=== PATIENT | female | born 1980 | race Caucasian/White ===

== ENCOUNTER 2016-11-30 19:39 | Outpatient (CLI) | payer OTHER ==
[2016-11-30 20:29] LABS: APPEARANCE,URINE SLIGHTLY-CLOUDY; BILIRUBIN,URINE NEGATIVE (NEGATIVE); GLUCOSE, URINE NEGATIVE (NEGATIVE); KETONES,URINE NEGATIVE (NEGATIVE); LEUKOCYTE ESTERASE,URINE NEGATIVE (NEGATIVE); NITRITE,URINE NEGATIVE (NEGATIVE); PROTEIN,URINE NEGATIVE (NEGATIVE); URINE SPECIFIC GRAVITY 1.009; UROBILINOGEN,URINE NEGATIVE mg/dL (<2.0)
[2016-11-30 20:45] LABS: URINE BARBITURATES SCREEN NEGATIVE; URINE METHADONE SCREEN NEGATIVE; URINE OPIATES LOW NEGATIVE; URINE PHENCYCLIDINE SCREEN NEGATIVE
--- NOTE | 2016-11-30 21:46 | RADIOLOGY REPORT (SQ) ---
EXAM DESCRIPTION: U/S OB LIMITED COMPLETED DATE/TIME: 11/30/2016 9:35 pm REASON FOR STUDY: cramping/hx of PTL/spotting--assess cervical lengt COMPARISON: None. TECHNIQUE: Limited transabdominal grayscale ultrasound for evaluation of specific requested obstetri winnie parameters. LIMITATIONS: None. FINDINGS: CERVICAL LENGTH: 5.3 cm. Closed. JAYSON: 11.1 cm. FHR: 131 beats per minute. PRESENTATION: Cephalic. OTHER: The placenta is posterior in location. IMPRESSION: LIMITED OBSTETRICAL ULTRASOUND WITH MEASURED PARAMETERS DELINEATED ABOVE. Trimester of : Third trimester - 28 weeks to delivery. TECHNICAL DOCUMENTATION: JOB ID: [id number] [employer]- All Rights Reserved
--- NOTE | 2016-11-30 22:02 | Non Stress Test Report ---
Non Stress Test Datetime Report Generated by CPN: 11/30/2016 22:02 DEMOGRAPHIC EGA NST: 32.4 INDICATION Indication for Study: Ordered by Provider MONITORING Monitor Explained: Monitor Explained; Test Explained; Patient Verbalized Understanding Time on Monitor: 11/30/2016 19:57 Time off Monitor: 11/30/2016 21:04 NST Duration: 67 NST INTERVENTIONS NST Interventions: None BABY A: [id number] BABY A Movement : Present Contraction Frequency : none FHR Baseline : 135 Accelerations : 15X15 Decelerations : None Variability : Moderate 6-25bpm NST Review: Meets Criteria for Reactive NST NST Review and Verified By : LACIE Sanders NST Results: Reactive NST REPORT Report Trigger: Send Report
== END 2016-11-30 21:57 | disposition home or self-care (01) ==
LOC: LC 19:39
PROVIDERS: ATTEND Obstetrics & Gynecology
PROC: 4A1HXCZ Monitoring of Products of Conception, Cardiac Rate, External Approach (ICD-10-PCS; principal; 2016-11-30)
DX: O60.03 Preterm labor without delivery, third trimester (principal); Z3A.32 32 weeks gestation of pregnancy
CPT/HCPCS: 76815; 80307; 81001

== ENCOUNTER 2016-12-26 13:30 | Outpatient (CLI) | payer OTHER ==
[2016-12-26 14:06] LABS: APPEARANCE,URINE SLIGHTLY-CLOUDY; BILIRUBIN,URINE NEGATIVE (NEGATIVE); GLUCOSE, URINE >=500 mg/dL (NEGATIVE); KETONES,URINE NEGATIVE (NEGATIVE); LEUKOCYTE ESTERASE,URINE MODERATE (NEGATIVE); NITRITE,URINE NEGATIVE (NEGATIVE); PROTEIN,URINE NEGATIVE (NEGATIVE); URINE SPECIFIC GRAVITY 1.005; UROBILINOGEN,URINE NEGATIVE mg/dL (<2.0)
[2016-12-26 14:37] LABS: URINE BARBITURATES SCREEN NEGATIVE; URINE METHADONE SCREEN NEGATIVE; URINE OPIATES LOW NEGATIVE; URINE PHENCYCLIDINE SCREEN NEGATIVE
--- NOTE | 2016-12-26 15:17 | Non Stress Test Report ---
Non Stress Test Datetime Report Generated by CPN: 12/26/2016 15:17 DEMOGRAPHIC EGA NST: 36.2 INDICATION Indication for Study: Other Indication for Study (NST) Other: Labor check MONITORING Monitor Explained: Monitor Explained; Test Explained; Patient Verbalized Understanding Time on Monitor: 12/26/2016 13:53 Time off Monitor: 12/26/2016 15:10 NST Duration: 77 NST INTERVENTIONS NST Interventions: None Physician Notified NST: Dr. Chen BABY A: [id number] BABY A Movement : Present Contraction Frequency : 0 FHR Baseline : 140 Accelerations : 15X15 Decelerations : None Variability : Moderate 6-25bpm NST Review: Meets Criteria for Reactive NST NST Review and Verified By : HJazmine Ryanne, RN NST Results: Reactive NST REPORT Report Trigger: Send Report
== END 2016-12-26 15:21 | disposition home or self-care (01) ==
LOC: LC 13:30
PROVIDERS: ATTEND Obstetrics & Gynecology
PROC: 4A1HXCZ Monitoring of Products of Conception, Cardiac Rate, External Approach (ICD-10-PCS; principal; 2016-12-26)
DX: O09.523 Supervision of elderly multigravida, third trimester (principal); Z3A.36 36 weeks gestation of pregnancy
CPT/HCPCS: 59025; 80307; 81001

== ENCOUNTER 2016-12-29 16:48 | Outpatient (CLI) | payer OTHER ==
--- NOTE | 2016-12-29 17:44 | Non Stress Test Report ---
Non Stress Test Datetime Report Generated by CPN: 12/29/2016 17:44 DEMOGRAPHIC EGA NST: 36.5 INDICATION Indication for Study: Other Indication for Study (NST) Other: AMA VITAL SIGNS Temperature - NST: 98.2 Pulse - NST: 78 RESP - NST: 16 NBPSYS NST: 118 NBPDIA NST: 84 MONITORING Monitor Explained: Monitor Explained; Test Explained; Patient Verbalized Understanding Time on Monitor: 12/29/2016 17:01 Time off Monitor: 12/29/2016 17:36 NST Duration: 35 NST INTERVENTIONS NST Interventions: PO Hydration; Reposition Patient; Oxytocin Challenge Test Physician Notified NST: Dr. Barrientos, Strip reviewed by provider BABY A: [id number] BABY A Movement : Present Contraction Frequency : none FHR Baseline : 130 Accelerations : 15X15 Decelerations : None Variability : Moderate 6-25bpm NST Review: Meets Criteria for Reactive NST NST Review and Verified By : CHYNA MANLEY, RN NST Results: Reactive NST REPORT Report Trigger: Send Report
== END 2016-12-29 17:38 | disposition home or self-care (01) ==
LOC: LC 16:48
PROVIDERS: ATTEND Specialist
DX: O09.523 Supervision of elderly multigravida, third trimester (principal); Z3A.36 36 weeks gestation of pregnancy
CPT/HCPCS: 59025

== ENCOUNTER 2017-01-04 04:21 | Inpatient (IN) | payer OTHER ==
[2017-01-04 05:04] LABS: APPEARANCE,URINE SLIGHTLY-CLOUDY; BILIRUBIN,URINE NEGATIVE (NEGATIVE); GLUCOSE, URINE NEGATIVE (NEGATIVE); KETONES,URINE NEGATIVE (NEGATIVE); LEUKOCYTE ESTERASE,URINE MODERATE (NEGATIVE); NITRITE,URINE NEGATIVE (NEGATIVE); PROTEIN,URINE NEGATIVE (NEGATIVE); URINE SPECIFIC GRAVITY 1.009; UROBILINOGEN,URINE NEGATIVE mg/dL (<2.0)
[2017-01-04] MEDS ORDERED: RINGERS SOLUTION,LACTATED 1,000 ML IV ONE (05:10)
[2017-01-04] MEDS ORDERED: RINGERS SOLUTION,LACTATED 1,000 ML IV PRN (05:10)
[2017-01-04 05:18] LABS: URINE BARBITURATES SCREEN NEGATIVE; URINE METHADONE SCREEN NEGATIVE; URINE OPIATES LOW NEGATIVE; URINE PHENCYCLIDINE SCREEN NEGATIVE
[2017-01-04] MEDS ORDERED: MISOPROSTOL 0.2 MG TABLET ONE (05:41)
[2017-01-04] MEDS ORDERED: LIDOCAINE 1% INJ-PF (10 MG/ML) 30 ML SDV ONE (05:41)
[2017-01-04] MEDS ORDERED: OXYTOCIN/NORMAL SALINE 20 UNIT/1,000 ML RTUINJ ONE (05:42)
[2017-01-04 05:43] LABS: ABSOLUTE LYMPHOCYTES (AUTO) 1.9 10^3/uL (0.5-4.7); ABSOLUTE MONOCYTES (AUTO) 0.7 10^3/uL (0.1-1.4); ABSOLUTE NEUT (AUTO) 5.4 10^3/uL (1.7-8.2); BASOPHILS % (AUTO) 0.3 % (0-2); EOSINOPHILS % (AUTO) 0.6 % (0-6); HEMATOCRIT 32.7 % (36.0-47.0); HEMOGLOBIN 11.6 g/dL (12.0-15.5); HGB HCT DIFFERENCE 2.1; LYMPHOCYTES % (AUTO) 23.9 % (13-45); MEAN CORPUSCULAR HEMOGLOBIN 32.2 pg (27.0-33.4); MEAN CORPUSCULAR HGB CONC 35.5 g/dL (32.0-36.0); MEAN CORPUSCULAR VOLUME 91 fl (80-97); MONOCYTES % (AUTO) 8.5 % (3-13); RED BLOOD COUNT 3.61 10^6/uL (3.72-5.28); RED CELL DISTRIBUTION WIDTH 13.8 % (11.5-14.0); SEGMENTED NEUTROPHILS % (AUTO) 66.7 % (42-78)
--- NOTE | 2017-01-04 06:36 | L&D Progress Notes ---
PROGRESS NOTES Datetime Report Generated by CPN: 01/04/2017 06:36 PROGRESS NOTE Procedures: Artificial ROM Plan: Continue Present Management Comment: Pt c/o more pressure. Offered arom and pt accepted. SVE unchanged. Fluid clear. MEMBRANES Membranes: Ruptured Amniotic Fluid Color: Clear FETUS A FHR Category: Category I SIGNATURE SIGNATURE: [id number] SIGNATURE: [id number] SIGNATURE: [id number] SIGNATURE: [id number] Signature: with User ID: [email or web address]
[2017-01-04] MEDS ORDERED: NALBUPHINE HCL INJ 10 MG/1 ML AMPULE ONE (07:24)
[2017-01-04] MEDS ORDERED: NALBUPHINE HCL INJ 10 MG/1 ML AMPULE INJ ONE (07:36)
[2017-01-04] MEDS ORDERED: EPHEDRINE SULFATE INJ 50 MG/1 ML AMPULE ONE (08:28)
[2017-01-04] MEDS ORDERED: FENTANYL CITRATE INJ/PF 100 MCG/2 ML AMPUL ONE (08:28)
[2017-01-04] MEDS ORDERED: PHENYLEPHRINE HCL INJ/PF 10 MG/1 ML SDV ONE (08:28)
--- NOTE | 2017-01-04 08:28 | L&D Progress Notes ---
PROGRESS NOTES Datetime Report Generated by CPN: 01/04/2017 08:28 PROGRESS NOTE Impression: Normal Progression of Labor Plan: Continue Present Management Vital Signs : Reviewed; Within Normal Limits Comment: breathing with uc's, VE 7-8cm/90/vtx/0, requesting epidural, hsb at helping pt breath, talking after uc's, uc's q 2-3 min x 60, Cat 1 with early decelerations, sitting on side of bed for epidural FETUS C SIGNATURE: [id number] Assignment: Liam Chen DO Signature: with User ID: [email or web address] : with User ID: [email or web address]
[2017-01-04] MEDS ORDERED: FENTANYL/BUPIVACAINE/NS/PF 200 MCG/100 ML RTUINJ EPI ONE (08:29)
[2017-01-04] MEDS ORDERED: BUPIVACAINE HCL 0.25 % INJ/PF (2.5 MG/1 ML) 30 ML VIAL ONE (08:29)
[2017-01-04] MEDS ORDERED: GLYCERIN/WITCH HAZEL LEAF 1 EACH MED..PAD TP PRN (10:34)
[2017-01-04] MEDS ORDERED: MEASLES,MUMPS&RUBELLA VACC/PF 0.5 ML VIAL SUBCUT PRN (10:34)
[2017-01-04] MEDS ORDERED: PROMETHAZINE HCL 25 MG SUPP.RECT PR PRN (10:34)
[2017-01-04] MEDS ORDERED: PROMETHAZINE HCL INJ 25 MG/1 ML VIAL IV PRN (10:34)
[2017-01-04] MEDS ORDERED: MISOPROSTOL 0.2 MG TABLET PR PRN (10:34)
[2017-01-04] MEDS ORDERED: MAGNESIUM HYDROXIDE SUSP 30 ML UDCUP PO PRN (10:34)
[2017-01-04] MEDS ORDERED: NA PHOS,M-B/NA PHOS,DI-BA (ADULT) 133 ML ENEMA PR PRN (10:34)
[2017-01-04] MEDS ORDERED: DIBUCAINE 1% OINTMENT 28 GM TP PRN (10:34)
[2017-01-04] MEDS ORDERED: BENZOCAINE/MENTHOL AEROSOL SPRAY 56 ML TOP PRN (10:34)
[2017-01-04] MEDS ORDERED: OXYTOCIN/NORMAL SALINE 20 UNIT/1,000 ML RTUINJ IV PRN (10:34)
[2017-01-04] MEDS ORDERED: PSEUDOEPHEDRINE HCL 30 MG TABLET PO PRN (10:34)
[2017-01-04] MEDS ORDERED: PROMETHAZINE HCL 25 MG TABLET PO PRN (10:34)
[2017-01-04] MEDS ORDERED: DIPH/PERTUSS(ACELL)/TETANUS VAC/PF 0.5 ML SYR (>=10YO) IM PRN (10:34)
[2017-01-04] MEDS ORDERED: DIPHENHYDRAMINE HCL 25 MG CAPSULE PO PRN (10:34)
[2017-01-04] MEDS ORDERED: ACETAMINOPHEN 650 MG SUPP.RECT PR PRN (10:34)
--- NOTE | 2017-01-04 11:27 | Delivery Summary ---
Del Sum A-C Datetime Report Generated by CPN: 01/04/2017 11:27 DELIVERY PERSONNEL DELIVERY PERSONNEL: [id number] Delivery Doctor:: Radhika York CNM Nurse Sports Trainer Certified:: Radhika York CNM Labor and Delivery Nurse:: Siria Rojas RNmodel maker plastic Nurse:: LACIE Winslow Creative Services Director/[address] MAN: Sheila Bailey CNA II MATERNAL INFORMATION Delivery Anesthesia: Epidural Medications After Delivery: Pitocin Bolus-Please Comment; Pitocin Drip 20 Units/1000ml NSS; Cytotec 600mcg Per Rectum/Vagina Estimated Blood Loss (ml): 300 Maternal Complications: None Provider Comments: Pt progressed quickly and had strong urge to push, pushed x 3, viable female from OA to JEOVANNY over ML lac,, baby placed on mothers abdomen, cord clamped after 2 minutes, spont delivery of grossly nl intact placenta, placed in cooler on ice for mother to take home for encapsulation. ML lac repaired with 2-0 chromic without difficulty using epidural for anesthesia, Pitocin started, massage, Cytotec 600 mcg via rectum. Baby and mom remain in recovery in stable condition. FAther at , plans to breastfeed (Annotations: Data stored by CPN on behalf of user) LABOR SUMMARY EDC: 01/21/2017 00:00 No. Babies in Womb: 1 Attempted: No Labor Anesthesia: Epidural LABOR INFORMATION Reason for Induction: Not Applicable Onset of Labor: 01/04/2017 04:51 Complete Dilatation: 01/04/2017 10:06 Oxytocin: N/A Group B Beta Strep: negative Antibiotics # of Doses: 0 Steroids Given: None Reason Steroids Not Administered: Not Applicable MEMBRANES Membranes Rupture Method: Artificial Rupture of Membranes: 01/04/2017 06:29 Length of Rupture (hr): 3.68 Amniotic Fluid Color: Bloody Amniotic Fluid Amount: Small STAGES OF LABOR Stage 1 hr: 5 Stage 1 min: 15 Stage 2 hr: 0 Stage 2 min: 4 Stage 3 hr: 0 Stage 3 min: 4 Total Time in Labor hr: 5 Total Time in Labor min: 23 VAGINAL DELIVERY Episiotomy: None Laceration Extension: N/A Laceration Type: Perineal Laceration Repair Note: ML lac repaired with 2-0 chromic without difficulty Sponge Count Correct: Yes Sharps Count Correct: Yes CSECTION DELIVERY Primary Indication: N/A CSection Incision: N/A BABY A INFORMATION Infant Delivery Date/Time: 01/04/2017 10:10 Method of Delivery: Vaginal Born in Route : No : N/A Forceps: N/A Vacuum Extraction: N/A Shoulder Dystocia : No PRESENTATION/POSITION BABY A Presentation: Cephalic Cephalic Presentation: Vertex Vertex Position: Left Occipital Anterior Breech Presentation: N/A (Annotations: Data stored by [facility] on behalf of user) PLACENTA INFORMATION BABY A Placenta Delivery Time : 01/04/2017 10:14 Placenta Method of Delivery: Spontaneous Placenta Status: Delivered SCORES BABY A Heart Rate 1 min: >100 bpm Resp Effort 1 min: Good Cry Reflex Irritability 1 min: Cough or Sneeze or Pulls Away Muscle Tone 1 min: Active Motion Color 1 min: Blue/Pale Resuscitation Effort 1 min: N/A SCORE 1 MIN: 8 Heart Rate 5 min: >100 bpm Resp Effort 5 min: Good Cry Reflex Irritability 5 min: Cough or Sneeze or Pulls Away Muscle Tone 5 min: Active Motion Color 5 min: Body [place], Extremities Blue SCORE 5 MIN: 9 INFORMATION BABY A Gestational Age at Delivery: 37.4 Gestational Status: Early Term- 37- 38.6 Weeks Outcome : Liveborn Infant Condition : Stable Sex: Female IDENTIFICATION BABY A Infant Verification Date/Time: 01/04/2017 10:31 ID Band Number: [id number] Mother's Name Verified: Yes Infant RN Verifying Infant: C [facility] Additional Verifying Personnel: Lorena Delcidsuny [facility] WEIGHT/LENGTH BABY A Infant Birthweight (gm): 3340 Weight (lb): 7 Infant Weight (oz): 6 Length (in): 19.00 Length (cm): 48.26 CORD INFORMATION BABY A No. Cord Vessels: 3 Nuchal Cord : N/A Cord Blood Taken: Yes-For Storage (Mom's Blood type +) Infant Suction: None; Mouth ASSESSMENT BABY A Complications: None Physical Findings at Delivery: Within Normal Limits Infant Respirations: Appears Normal Skin to Skin: Yes Food Processing Scientist/ALS Called : No Infant Care By: Lorena MEDELLIN Transferred To: Remains with Mother
--- NOTE | 2017-01-04 12:29 | Admission Physical ---
Datetime Report Generated by CPN: 01/04/2017 12:29 CURRENT ADMISSION Hx Assessment: The History has been Reviewed and is Current Chief Complaint: Uterine Contractions Admit Plan: Initiate Labor Protocol ALLERGIES Medication Allergies: No Medication Allergies: No Known Allergies (12/29/2016) Medication Allergies: No Known Allergies (11/30/2016) Medication Allergies: None Latex: No Latex Allergies Food Allergies: N/A Environmental Allergies: N/A OBSTETRICAL HISTORY EDC: 01/21/2017 00:00 : 4 Para: 1 Term: 0 : 1 SAB: 2 IAB: 0 Ectopic: 0 Livin Cesareans: 0 VBACs: 0 Multiple Births: 0 Gestational Diabetes: No Rh Sensitization: No Incompetent Cervix: No DOROTHY: No Infertility: No ART Treatment: No Uterine Anomaly: No IUGR: No Hx Previous C/S: No Macrosomia: No Hx Loss/Stillborn: No PIH: No Hx : No Placenta Previa/Abruption: No Depression/PP Depression: No PTL/PROM: Yes Post Hemorrhage: No Current Procedures: Ultrasound Obstetrical History Comments: G1--SAB G2--SAB G3--34wk--[place]--5hr labor--6lb--boy--[employer] G4--present AMA SEE RECORDS Alcohol: No Marijuana : No Cocaine: No Other Illicit Drugs: No Cigarettes: Former Smoker. [id number] Cigarette Comments: quit summer MEDICAL HISTORY Diabetes: No Blood Transfusion: No Pulmonary Disease (Asthma, TB): No Breast Disease: No Hypertension: No Intellectual Property Counsel Surgery: No Heart Disease: No Hosp/Surgery: Yes Autoimmune Disorder: No Anesthetic Complications: No Kidney Disease: No Abnormal Pap Smear: No Neuro/Epilepsy: No Psychiatric Disorders: No Other Medical Diseases: No Hepatitis/Liver Disease: No Significant Family History: No Varicosities/Phlebitis: No Trauma/Violence : No Thyroid Dysfunction: Yes Medical History Comments: Appendectomy 2001 thyroid nodules 2010, present INFECTIOUS HISTORY Gonorrhea: No Genital Herpes: No Chlamydia: No Tuberculosis: No Syphilis: No Hepatitis: No HIV/AIDS Exposure: No Rash or Viral Illness: No HPV: No PHYSICAL EXAM General: Normal HEENT: Normal Neurologic: Normal Thyroid: Normal Heart: Normal Lungs: Normal Breast: Normal Back: Normal Abdomen: Normal Genitourinary Exam: Normal Extremities: Normal DTRs: Normal Pelvic Type: Adequate MEMBRANES Membranes: Ruptured Amniotic Fluid Color: Clear FETUS A EGA: 37.4 Monitoring: External US FHR Category: Category I Admit Comment: term labor-monitor, supportive care PLANS FOR LABOR AND DELIVERY Labor and Delivery: Placenta Request Feeding Preference: Breast Benefit of Breast Feed Discussed: Yes Circumcision: N/A INFORMED CONSENT Signature: with User ID: [email or web address]
[2017-01-04] MEDS: IBUPROFEN 800 MG TABLET PO SCH ×2 (14:07→21:03)
[2017-01-04] MEDS: FERROUS SULFATE 325 MG TABLET PO SCH (17:43)
[2017-01-04] MEDS: DOCUSATE SODIUM 100 MG CAPSULE PO SCH (17:43)
[2017-01-04] MEDS: FAMOTIDINE 20 MG TABLET PO SCH (21:03)
[2017-01-05] MEDS: ACETAMINOPHEN WITH CODEINE #3 TABLET PO PRN ×3 (02:58→22:24)
[2017-01-05] MEDS: IBUPROFEN 800 MG TABLET PO SCH ×3 (05:51→22:01)
[2017-01-05 07:33] LABS: HEMATOCRIT 31.7 % (36.0-47.0); HEMOGLOBIN 10.6 g/dL (12.0-15.5); HGB HCT DIFFERENCE 0.1; MEAN CORPUSCULAR HEMOGLOBIN 30.9 pg (27.0-33.4); MEAN CORPUSCULAR HGB CONC 33.5 g/dL (32.0-36.0); MEAN CORPUSCULAR VOLUME 92 fl (80-97); RED BLOOD COUNT 3.44 10^6/uL (3.72-5.28); RED CELL DISTRIBUTION WIDTH 13.9 % (11.5-14.0); WHITE BLOOD COUNT 9.1 10^3/uL (4.0-10.5)
[2017-01-05] MEDS: FAMOTIDINE 20 MG TABLET PO SCH ×2 (09:20→22:01)
[2017-01-05] MEDS: DOCUSATE SODIUM 100 MG CAPSULE PO SCH ×2 (09:20→18:01)
[2017-01-05] MEDS: PRENATAL VITAMIN W-O CA NO5/FE FUMARATE/FA CAPSULE PO SCH (09:20)
[2017-01-05] MEDS: SENNOSIDES/DOCUSATE 8.6-50 MG 1 EACH TABLET PO SCH (09:21)
[2017-01-05] MEDS: FERROUS SULFATE 325 MG TABLET PO SCH ×2 (09:21→18:01)
--- NOTE | 2017-01-05 12:02 | PDOC PROGRESS REPORT ---
Subjective-OB Subjective: Post Delivery Day: 1 36 year old. Denies any needs at this time, states lochia is stable, pain well controlled, voiding without difficulty Physical Exam (OB) Vital Signs: Temp Pulse Resp BP Pulse Ox 98.4 F 90 16 109/66 99 01/05/17 07:41 01/05/17 07:41 01/05/17 07:41 01/05/17 07:41 01/05/17 07:41 Intake & Output 01/04/17 01/05/17 01/06/17 06:59 06:59 06:59 Weight 90.45 kg - PIH/Pre-Eclampsia DTR's: 2 + Clonus: Negative Headache: Absent Epigastric Pain: No Visual Changes: No - Lochia Lochia Amount: Scant < 10 ml Lochia Color: Rubra/Red - Abdomen Description: Soft Hernia Present: No Fundal Description: Firm, Midline Fundal Height: u/u - u/2 Objective-Diagnostic Laboratory: 01/05/17 07:04 01/05/17 07:04 WBC 9.1 RBC 3.44 L Hgb 10.6 L Hct 31.7 L MCV 92 MCH 30.9 MCHC 33.5 RDW 13.9 Plt Count 132 L Assessment and Plan(PN) - Assessment and Plan (1) Vaginal delivery Is this a current diagnosis for this admission?: Yes Plan: routine pp care (2) Acute blood loss anemia Is this a current diagnosis for this admission?: Yes Plan: ferrous sulfate increase dietary iron - Time Spent with Patient Time with patient: Less than 15 minutes Critical Time spent with patient: Less than 15 minutes Medications reviewed and adjusted accordingly: Yes - Disposition Anticipated Discharge: Home Within: within 24 hours
[2017-01-06] MEDS: IBUPROFEN 800 MG TABLET PO SCH (05:09)
[2017-01-06] MEDS: ACETAMINOPHEN WITH CODEINE #3 TABLET PO PRN (05:10)
--- NOTE | 2017-01-06 08:52 | PDOC PROGRESS REPORT ---
Subjective-OB Subjective: Post Delivery Day: 36 year old. Denies any needs at this time. Ready to go home. Physical Exam (OB) Vital Signs: Temp Pulse Resp BP Pulse Ox 98.2 F 68 18 120/63 99 01/06/17 08:08 01/06/17 08:08 01/06/17 08:08 01/05/17 20:10 01/06/17 08:08 - PIH/Pre-Eclampsia DTR's: 2 + Clonus: Negative Headache: Absent Epigastric Pain: No Visual Changes: No - Lochia Lochia Amount: Scant < 10 ml Lochia Color: Rubra/Red - Abdomen Description: Soft, Round Hernia Present: No Bowel Sounds: Normoactive Flatus Presence: Present Stool: No Fundal Description: Firm Fundal Height: u/u - u/2 Objective-Diagnostic Laboratory: 01/05/17 07:04 Assessment and Plan(PN) - Time Spent with Patient Medications reviewed and adjusted accordingly: Yes - Disposition Anticipated Discharge: Home
--- NOTE | 2017-01-06 09:03 | PDOC DISCHARGE SUMMARY ---
Final Diagnosis Discharge Date: 01/06/17 - Final Diagnosis (1) History of PROM and premature delivery Is this a current diagnosis for this admission?: Yes (2) AMA (advanced maternal age) multigravida 35+ Is this a current diagnosis for this admission?: Yes (3) Is this a current diagnosis for this admission?: Yes (4) Vaginal delivery Is this a current diagnosis for this admission?: Yes (5) Acute blood loss anemia Is this a current diagnosis for this admission?: Yes Discharge Data - Discharge Medication Home Medications: No122/Iron/Folic Acid [ Multi Tablet] 1 tab PO DAILY 11/30/16 Docusate Sodium [Colace 100 mg Capsule] 100 mg PO BID 15 Days #30 capsule Ferrous Sulfate [Feosol 325 mg Tablet] 325 mg PO BID #60 tablet 01/06/17 Gestational Age: 37.4 wks Reason(s) for Admission: Onset of Labor Procedures: Ultrasound Intrapartum Procedure(s): Spontaneous Vaginal Delivery Complication(s): Laceration-Perineal - [place] Data Baby 1 Female at 1 minute: 8 at 5 minutes: 9 Weight: 3.345 kg Home with Mother: Yes Complications: No - Diagnosis Test Laboratory: Temp Pulse Resp BP Pulse Ox 98.2 F 68 18 120/63 99 01/06/17 08:08 01/06/17 08:08 01/06/17 08:08 01/05/17 20:10 01/06/17 08:08 01/04/17 01/04/17 01/05/17 04:33 05:17 07:04 RBC 3.61 L 3.44 L Hgb 11.6 L 10.6 L Hct 32.7 L 31.7 L Urine Opiates Screen NEGATIVE - Discharge information/Instructions Discharge Activity: Activity As Tolerated, Balance Activity w/Rest, Pelvic Rest , Slowly Increase Activity, No tub bath Discharge Diet: Regular Disposition: HOME, SELF-CARE Follow [facility]: 4, Weeks
[2017-01-06 10:20] VITALS: BP 133/65
[2017-01-06] MEDS: SENNOSIDES/DOCUSATE 8.6-50 MG 1 EACH TABLET PO SCH (11:33)
[2017-01-06] MEDS: PRENATAL VITAMIN W-O CA NO5/FE FUMARATE/FA CAPSULE PO SCH (11:33)
[2017-01-06] MEDS: DOCUSATE SODIUM 100 MG CAPSULE PO SCH (11:34)
[2017-01-06] MEDS: FERROUS SULFATE 325 MG TABLET PO SCH (11:34)
[2017-01-06] MEDS: FAMOTIDINE 20 MG TABLET PO SCH (11:34)
== END 2017-01-06 12:28 | disposition home or self-care (01) | DRG 775 ==
LOC: LC 04:21 → LR 05:10 → 2N 12:25
PROVIDERS: ADMIT Specialist; ATTEND Specialist
PROC: 10E0XZZ Delivery of Products of Conception, External Approach (ICD-10-PCS; principal; 2017-01-04)
PROC: 0HQ9XZZ Repair Perineum Skin, External Approach (ICD-10-PCS; 2017-01-04)
PROC: 10907ZC Drainage of Amniotic Fluid, Therapeutic from Products of Conception, Via Natural or Artificial Opening (ICD-10-PCS; 2017-01-04)
PROC: 4A1HXCZ Monitoring of Products of Conception, Cardiac Rate, External Approach (ICD-10-PCS; 2017-01-04)
DX: O99.02 Anemia complicating childbirth (principal); D62 Acute posthemorrhagic anemia; O70.0 First degree perineal laceration during delivery; Z87.891 Personal history of nicotine dependence; Z3A.37 37 weeks gestation of pregnancy; Z37.0 Single live birth
CPT/HCPCS: 36415; 80307; 81005; 85025; 85027; 86592; 86850; 86900; 86901; J2300; J2370; J2590; J3010; J3490; Q0114